=== PATIENT | male | born 1960 | race Caucasian/White ===

== ENCOUNTER 2020-09-14 13:32 | Emergency (ER) | payer OTHER ==
[~2020-09-14] VITALS: Ht 165.1 cm; Wt 70.3 kg
[2020-09-14] MEDS ORDERED: Prednisone20 MG PO (16:16)
[2020-09-14] MEDS ORDERED: POLYTRIM EYE DR10 M1 BOTHEYES (16:16)
[2020-09-14] MEDS ORDERED: Pseudoephedrine30 MG PO (16:16)
[2020-09-14] MEDS ORDERED: AMOCLA875 PO (16:16)
== END 2020-09-14 16:26 | disposition home or self-care (01) ==
LOC: ER 13:32
DX: I27.20 Pulmonary hypertension, unspecified (principal); F41.9 Anxiety disorder, unspecified; Z79.52 Long term (current) use of systemic steroids
CPT/HCPCS: 99283

== ENCOUNTER 2021-11-29 15:56 | Emergency (ER) | payer OTHER ==
[~2021-11-29] VITALS: Ht 165.1 cm; Wt 68.0 kg
[~2021-11-29 15:56] MED LIST: AMOCLA875 PO; POLYTRIM EYE DR10 M1 BOTHEYES; Prednisone20 MG PO; Pseudoephedrine30 MG PO
[2021-11-29 16:34] LABS: BASOPHILS ABSOLUTE AUTO 0.03 K/mm3 (0.00-0.23); BASOPHILS PERCENT AUTO 0 % (0-2); EOSINOPHILS ABSOLUTE AUTO 0.03 K/mm3 (0.00-0.68); EOSINOPHILS PERCENT AUTO 0 % (0-6); Hematocrit 43.6 % (37.0-53.0); Hemoglobin 15.4 g/dL (13.5-17.5); IMMATURE GRAN ABSOLUTE AUTO 0.05 K/mm3 (0.00-0.10); IMMATURE GRAN PERCENT AUTO 0 % (0-1); LYMPHOCYTES ABSOLUTE AUTO 1.88 K/mm3 (0.84-5.20); LYMPHOCYTES PERCENT AUTO 16 % (21-46); MONOCYTES ABSOLUTE AUTO 0.63 K/mm3 (0.16-1.47); MONOCYTES PERCENT AUTO 5 % (4-13); Mean Corpuscular HGB 31.9 pg (26.0-34.0); Mean Corpuscular HGB Conc 35.3 g/dL (31.5-36.5); Mean Corpuscular Volume 90 fL (80-100); Mean Platelet Volume 10.1 fL (9.1-12.4); NEUTROPHILS ABSOLUTE AUTO 9.09 K/mm3 (1.96-9.15); NEUTROPHILS PERCENT AUTO 78 % (41-73); Platelet Count 234 K/mm3 (150-400); RDW Coefficient Variation 12.2 % (11.7-14.2); RDW Standard Deviation 40.5 fL (35.1-46.3); Red Blood Cell Count 4.83 M/mm3 (4.30-5.90); White Blood Cell Count 11.71 K/mm3 (4.00-11.30)
[2021-11-29 16:42] LABS: Source, Urine Clean Catch
[2021-11-29 16:44] LABS: Bilirubin, Urine Neg (Neg); Blood, Urine Neg (Neg); Glucose Qualitative, Urine Neg (Neg); Ketones, Urine 2+ (Neg); Leukocyte Esterase, Urine Neg (Neg); Nitrite, Urine Neg (Neg); Protein, Urine Neg (Neg); Specific Gravity, Urine 1.005 (1.003-1.022); Urobilinogen, Urine NORM (Normal)
[2021-11-29 16:58] LABS: Alanine Aminotransfer (ALT/SGP 32 U/L (12-78); Albumin, Blood 4.4 g/dL (3.4-5.0); Albumin/Globulin Ratio 1.5 (0.8-1.8); Alk Phos 90 U/L (50-136); Anion Gap 7 mmol/L (6-16); Aspartate Aminotrans (AST/SGOT 24 U/L (12-37); Bilirubin, Total 0.8 mg/dL (0.1-1.0); Blood Urea Nitrogen 6 mg/dL (8-24); CO2, Blood 23 mmol/L (21-32); Calcium, Blood 9.7 mg/dL (8.5-10.1); Chloride, Blood 104 mmol/L (98-108); Creatinine, Blood 0.75 mg/dL (0.60-1.20); Ethanol (Alcohol), Blood, Med <3 mg/dL; Glomerular Filtration Rate >60 (60-); Glucose, Blood 111 mg/dL (70-99); Potassium, Blood 4.1 mmol/L (3.5-5.5); Sodium, Blood 134 mmol/L (136-145); Thyroxine (T4) 11.2 ug/dL (4.5-12.1); Total Protein, Blood 7.4 g/dL (6.4-8.2); Troponin I <0.015 ng/mL (0.000-0.040)
[2021-11-29 16:58] LABS: U Amphetamine Screen Not Detected; U Barbituate Screen Not Detected; U Benzodiazapine Screen Not Detected; U Cannabinoids Screen DETECTED; U Cocaine Screen Not Detected; U Methadone Screen Not Detected; U Methamphetamine Screen Not Detected; U Opiates Screen Not Detected; U Phencyclidine Screen Not Detected
[2021-11-29 16:59] LABS: U Buprenorphine Screen Not Detected; U Oxycodone Screen Not Detected; U Propoxyphene Screen Not Detected
[2021-11-29 17:04] LABS: Appearance, Urine Clear (Clear); Color, Urine Pale Yellow (P-Yellow)
[2021-11-29 17:04] LABS: Salicylate 3.7 mg/dL (2.8-20.0)
[2021-11-29 17:09] LABS: Acetaminophen, Random <2.0 ug/mL (10.0-30.0)
[2021-11-29] MEDS ORDERED: HYDCOR2.5C PR (21:55)
[2021-11-29] MEDS ORDERED: TAMS.4ER PO (21:55)
[2021-11-29] MEDS ORDERED: DULCOLAX400 MG/5 M PO (21:55)
[2021-11-29] MEDS ORDERED: DOC250 PO (22:07)
== END 2021-11-29 22:43 | disposition home or self-care (01) ==
LOC: ER 15:56
PROVIDERS: Student in an Organized Health Care Education/Training Program
DX: K59.00 Constipation, unspecified (principal); K92.1 Melena; K64.4 Residual hemorrhoidal skin tags
CPT/HCPCS: 36415; 51798; 71046; 74177; 80053; 81003; 83690; 83880; 84436; 84443; 84484; 85025; 86592; 93005; 93010; 96374; 96375; 99285-25; G0480; J1885; J2765; Q9967

== ENCOUNTER 2022-01-04 23:37 | Emergency (ER) | payer OTHER ==
[~2022-01-04] VITALS: Ht 167.6 cm; Wt 64.6 kg
[~2022-01-04 23:37] MED LIST changes: +DOC250 PO; +DULCOLAX400 MG/5 M PO; +HYDCOR2.5C PR; +TAMS.4ER PO
== END 2022-01-04 23:55 | disposition left against medical advice (07) ==
LOC: ER 23:37
DX: Z53.21 Procedure and treatment not carried out due to patient leaving prior to being seen by health care provider (principal)

== ENCOUNTER → 2022-01-29 | Outpatient (CLI) | payer OTHER | END | disposition home or self-care (01) | LOC: LAB SHORT 15:30 | DX: R39.9 Unspecified symptoms and signs involving the genitourinary system (principal) | CPT/HCPCS: 87086 ==

== ENCOUNTER 2024-04-29 10:28 | Emergency (ER) | payer OTHER ==
[~2024-04-29] VITALS: Ht 152.4 cm; Wt 65.8 kg
[2024-04-29 10:47] VITALS: BP 160/89
== END 2024-04-29 10:52 | disposition home or self-care (01) ==
LOC: ER 10:28
DX: Z00.00 Encounter for general adult medical examination without abnormal findings (principal); F41.9 Anxiety disorder, unspecified; F17.200 Nicotine dependence, unspecified, uncomplicated; Z79.899 Other long term (current) drug therapy
CPT/HCPCS: 99282